=== PATIENT | female | born 1965 | race Caucasian/White ===

== ENCOUNTER 2018-09-18 08:45 | Outpatient (CLI) | payer OTHER ==
--- NOTE | 2018-09-18 09:37 | ULT ---
SONOGRAM LEFT BREAST: History: Palpable abnormality. Breast cancer with prior mastectomy and implant placement. FINDINGS: Sonographic evaluation of the lateral aspect of the left breast shows subcutaneous tissue and underly ing implant. No evidence of rupture. No solid or cystic masses. IMPRESSION: No masses are visible within the subcutaneous tissues at the lateral aspect of the left breast in reg ion of palpable concern. Underlying implant is visualized without sonographic evidence of complicatio n. BIRADS category 2 - benign findings. If there is ongoing concern, MRI breasts could be considered to evaluate the tissues and integrity of the implants. POS: CARLIE
== END 2018-09-18 08:46 | disposition home or self-care (01) ==
LOC: BICULT 08:45
PROVIDERS: ATTEND Plastic Surgery
DX: N63.20 Unspecified lump in the left breast, unspecified quadrant (principal)

== ENCOUNTER 2019-08-25 13:53 | Outpatient (CLI) | payer OTHER ==
--- NOTE | 2019-08-25 15:59 | MRI ---
MRI OF THE RIGHT KNEE: 08/25/19 PROVIDED CLINICAL HISTORY: Right knee pain. FINDINGS: The anterior cruciate ligament, posterior cruciate ligament, medial collateral ligament and lateral c ollateral ligamentous demonstrate an intact MR appearance, as does the extensor mechanism. The medial and lateral menisci demonstrate no evidence for tear. There is multifocal articular cartilage fissuring involving the median ridge and lateral facet of the patella with articular cartilage thinning involving the medial patellar facet. The majority of the cartilage fissuring described involves greater than 50% of cartilage thickness and several involving the full thickness of the articular cartilage. Articular cartilage appears otherwise preserved. There is increased signal intensity on fluid sensitive sequences involving the suprapatellar fat. N o focal concerning regional marrow or muscular signal abnormality is evident. The amount of fluid wi thin the knee joint appears physiologic. IMPRESSION: Prominent patellar chondrosis. Edema within the suprapatellar fat, which can be seen in the setting o f impingement. POS: OFF
== END 2019-08-25 13:54 | disposition home or self-care (01) ==
LOC: BICMRI 13:53
PROVIDERS: ATTEND Orthopaedic Surgery
DX: M25.561 Pain in right knee (principal); M22.2X1 Patellofemoral disorders, right knee

== ENCOUNTER 2021-12-26 12:36 | Emergency (ER) | payer BC | END 2021-12-26 14:50 | disposition home or self-care (01) | LOC: ERS 12:36 | DX: S61.212A Laceration without foreign body of right middle finger without damage to nail, initial encounter (principal); W23.0XXA Caught, crushed, jammed, or pinched between moving objects, initial encounter | CPT/HCPCS: 12001 ==

== ENCOUNTER 2022-06-21 07:25 | Outpatient (CLI) | payer BC | END 2022-06-21 07:26 | disposition home or self-care (01) | LOC: NM 07:25 | PROVIDERS: ATTEND Internal Medicine Hematology & Oncology | DX: C50.911 Malignant neoplasm of unspecified site of right female breast (principal); M54.9 Dorsalgia, unspecified; M54.2 Cervicalgia | CPT/HCPCS: 78306; A9503 ==

== ENCOUNTER 2022-08-15 16:20 | Outpatient (CLI) | payer BC | END 2022-08-15 17:30 | disposition home or self-care (01) | LOC: CTENTCT 16:20 | PROVIDERS: ATTEND Specialist | DX: J34.89 Other specified disorders of nose and nasal sinuses (principal) | CPT/HCPCS: 70486 ==

== ENCOUNTER 2022-09-20 08:52 | Day surgery (SDC) | payer BC ==
[2022-09-18 14:04] VITALS: BMI 26.5
[2022-09-20] MEDS ORDERED: fentaNYL PF 100 MCG/2 ML SYRINGE ONE (13:36)
[2022-09-20] MEDS ORDERED: methylPREDNISolone Acetate 40 mg/ml Vial ONE (13:36)
[2022-09-20] MEDS ORDERED: Oxymetazoline HCl 0.05% (30 ML BOT) ONE ×3 (14:16→15:01)
[2022-09-20] MEDS ORDERED: Midazolam HCl 2 mg/2 ml Vial ONE (14:43)
[2022-09-20] MEDS ORDERED: Lidocaine 1% (PF) 30 ML VIAL ONE (15:01)
[2022-09-20] MEDS ORDERED: EPINEPHrine 1 MG/ML AMP ONE (15:01)
[2022-09-20] MEDS ORDERED: Bacitracin Zinc Ointment 30 gm TUBE ONE (15:01)
[2022-09-20] MEDS ORDERED: Propofol 1,000 MG/100 ML VIAL IV ONE (15:50)
[2022-09-20] MEDS ORDERED: NEOSTIGMINE 3 MG/3 ML SYR 3 MG/3 ML SYRINGE ONE (15:56)
[2022-09-20] MEDS ORDERED: Glycopyrrolate 0.2 MG/ML 5 ML SYRINGE ONE (15:56)
[2022-09-20] MEDS ORDERED: Rocuronium Bromide 10 MG/ML (10ML VIAL) ONE (15:56)
[2022-09-20] MEDS ORDERED: ePHEDrine 50 MG/ML VIAL ONE (15:56)
[2022-09-20] MEDS ORDERED: PROPOFOL 200 MG/20 ML VIAL ONE (15:56)
[2022-09-20] MEDS ORDERED: Ondansetron PF 4 MG/2 ML Vial ONE (15:56)
[2022-09-20] MEDS ORDERED: Dexamethasone 20 MG/5 ML VIAL ONE (15:56)
[2022-09-20] MEDS ORDERED: FENTANYL 50 MCG/ML 1 ML VIAL ONE ×2 (17:21→17:48)
[2022-09-20] MEDS ORDERED: hydrALAZINE 20 MG/ML VIAL ONE (17:32)
== END 2022-09-20 18:20 | disposition home or self-care (01) ==
LOC: SDC 08:52
PROVIDERS: ATTEND Specialist
PROC: 09SM0ZZ Reposition Nasal Septum, Open Approach (ICD-10-PCS; principal; 2022-09-20)
PROC: 099Q8ZZ Drainage of Right Maxillary Sinus, Via Natural or Artificial Opening Endoscopic (ICD-10-PCS; principal; 2022-09-20)
PROC: 09SL8ZZ Reposition Nasal Turbinate, Via Natural or Artificial Opening Endoscopic (ICD-10-PCS; principal; 2022-09-20)
PROC: 099R8ZZ Drainage of Left Maxillary Sinus, Via Natural or Artificial Opening Endoscopic (ICD-10-PCS; principal; 2022-09-20)
DX: J01.01 Acute recurrent maxillary sinusitis (principal); J34.2 Deviated nasal septum; J34.3 Hypertrophy of nasal turbinates; J34.89 Other specified disorders of nose and nasal sinuses; G89.29 Other chronic pain; G44.209 Tension-type headache, unspecified, not intractable; E78.00 Pure hypercholesterolemia, unspecified; E03.9 Hypothyroidism, unspecified; M81.0 Age-related osteoporosis without current pathological fracture; J30.1 Allergic rhinitis due to pollen; J30.81 Allergic rhinitis due to animal (cat) (dog) hair and dander; Z85.3 Personal history of malignant neoplasm of breast; Z79.82 Long term (current) use of aspirin; Z79.890 Hormone replacement therapy; Z79.899 Other long term (current) drug therapy; Z88.6 Allergy status to analgesic agent
CPT/HCPCS: J0171; J0360; J1030; J1100; J2001; J2250; J2405; J2704; J3010; J3490

== ENCOUNTER 2024-04-13 12:48 | Outpatient (CLI) | payer BC | END 2024-04-13 12:49 | disposition home or self-care (01) | LOC: SCSMRI 12:48 | PROVIDERS: ATTEND Clinical Nurse Specialist Medical-Surgical | DX: M54.17 Radiculopathy, lumbosacral region (principal); M51.36 Other intervertebral disc degeneration, lumbar region; M47.816 Spondylosis without myelopathy or radiculopathy, lumbar region | CPT/HCPCS: 72148 ==

== ENCOUNTER 2024-04-27 09:03 | Observation (INO) | payer BC ==
[2024-04-27] MEDS ORDERED: fentaNYL 50 mcg/mL 1 mL Vial ONE (11:02)
[2024-04-27] MEDS ORDERED: Midazolam HCl 2 mg/2 ml Vial ONE (11:02)
[2024-04-27] MEDS ORDERED: Lidocaine 1.5% w/Epi 1:200K 30 ML VIAL (Epid Use) ONE (12:00)
[2024-04-27] MEDS ORDERED: PROPOFOL 20 ML ONE ×2 (12:03→12:53)
[2024-04-27] MEDS ORDERED: SUGAMMADEX SODIUM 200 MG/2 ML VIAL ONE ×2 (12:03→13:08)
[2024-04-27] MEDS ORDERED: fentaNYL PF 100 MCG/2 ML SYRINGE ONE (12:03)
[2024-04-27] MEDS ORDERED: Vancomycin 1 GM/200 ML (FROZEN) BAG ONE (12:17)
[2024-04-27] MEDS ORDERED: Lidocaine 2% PF 5 ML VIAL ONE (12:40)
[2024-04-27] MEDS ORDERED: Esmolol 100 MG/10 ML VIAL ONE (12:42)
[2024-04-27] MEDS ORDERED: Naloxone HCl 0.4 mg/ml Vial IV PRN (12:45)
[2024-04-27] MEDS ORDERED: Bupivacaine 0.25% 10 ML VIAL EPIDURAL PRN (12:45)
[2024-04-27] MEDS ORDERED: Naloxone HCl 0.4 mg/ml Vial IVP PRN (12:45)
[2024-04-27] MEDS ORDERED: diphenhydrAMINE 50 MG/ML VIAL IM PRN (12:45)
[2024-04-27] MEDS ORDERED: Promethazine HCl 25 MG SUPP PR PRN (12:45)
[2024-04-27] MEDS ORDERED: Promethazine HCl 25 MG/ML VIAL IM PRN (12:45)
[2024-04-27] MEDS ORDERED: traMADol HCl 50 MG TAB PO PRN ×2 (12:45)
[2024-04-27] MEDS ORDERED: Ondansetron PF 4 MG/2 ML Vial IVP PRN (12:45)
[2024-04-27] MEDS ORDERED: Moisturizing Cream (Eucerin) 113 GM JAR TOP PRN (12:45)
[2024-04-27] MEDS ORDERED: Zolpidem Tartrate 5 MG TAB PO PRN (12:45)
[2024-04-27] MEDS ORDERED: Dexamethasone 20 MG/5 ML VIAL ONE (12:50)
[2024-04-27] MEDS ORDERED: Ondansetron PF 4 MG/2 ML Vial ONE (12:50)
[2024-04-27] MEDS ORDERED: Rocuronium Bromide 10 MG/ML (10ML VIAL) ONE (12:50)
[2024-04-27] MEDS ORDERED: Metoclopramide HCl 10 MG (2 mL) VIAL ONE (12:54)
[2024-04-27] MEDS ORDERED: HYDROmorphone 2 MG/ML VIAL ONE (13:34)
[2024-04-27 16:02] VITALS: BMI 23.0
[2024-04-27] MEDS: diphenhydrAMINE 50 MG/ML VIAL IVP PRN (16:15)
[2024-04-27] MEDS: Simvastatin 10 MG TAB PO SCH (21:49)
[2024-04-27] MEDS: Magnesium Oxide 250 MG TAB PO SCH (21:49)
[2024-04-27] MEDS: Pantoprazole DR 40 MG TAB PO SCH (21:50)
[2024-04-27] MEDS: HYDROcodone/Acetaminophen 5/325 mg Tablet PO PRN (21:50)
[2024-04-27] MEDS: Montelukast Sodium 10 mg Tablet PO SCH (21:50)
[2024-04-27] MEDS: diphenhydrAMINE 25 MG CAP PO PRN (21:51)
[2024-04-28] MEDS: Vancomycin 1 GM in Premix 1 BAG IVPB SCH (00:50)
[2024-04-28] MEDS: Acyclovir 400 mg Tablet PO SCH (00:51)
[2024-04-28] MEDS: FENTANYL 500 MCG/10 ML VIAL 500 MCG, Bupivacaine 0.75% 10 ML in Sodium Chloride 0.9% 80 ML EPIDURAL SCH (04:26)
[2024-04-28] MEDS: Levothyroxine Sodium 75 MCG TAB PO SCH (06:23)
[2024-04-28] MEDS: HYDROcodone/Acetaminophen 5/325 mg Tablet PO PRN (09:59)
[2024-04-28] MEDS: Calcium Carbonate 600 MG + Vit D TAB PO SCH (10:00)
[2024-04-28] MEDS: Famotidine 20 MG TAB PO SCH (10:01)
[2024-04-28] MEDS: Lisinopril 5 MG TAB PO SCH (10:01)
[2024-04-28] MEDS: Cholecalciferol 1,000 UNITS (25 MCG) TAB PO SCH (10:01)
[2024-04-28] MEDS: Gabapentin 300 MG CAP PO SCH (10:01)
[2024-04-28 12:39] VITALS: BP 178/87; TEMP 98
== END 2024-04-28 14:30 | disposition home or self-care (01) ==
LOC: SDC 09:03 → SURG B 15:29
PROVIDERS: ADMIT Orthopaedic Surgery; ATTEND Orthopaedic Surgery
PROC: 0SSCXZZ Reposition Right Knee Joint, External Approach (ICD-10-PCS; principal; 2024-04-28)
PROC: 3E0T3BZ Introduction of Anesthetic Agent into Peripheral Nerves and Plexi, Percutaneous Approach (ICD-10-PCS; 2024-04-28)
DX: M25.661 Stiffness of right knee, not elsewhere classified (principal); M85.80 Other specified disorders of bone density and structure, unspecified site; E03.9 Hypothyroidism, unspecified; D72.819 Decreased white blood cell count, unspecified; E78.00 Pure hypercholesterolemia, unspecified; E55.9 Vitamin D deficiency, unspecified; Z90.13 Acquired absence of bilateral breasts and nipples; Z96.651 Presence of right artificial knee joint; Z90.710 Acquired absence of both cervix and uterus; Z98.890 Other specified postprocedural states; Z79.899 Other long term (current) drug therapy; Z88.6 Allergy status to analgesic agent
CPT/HCPCS: J1100; J1170; J1200; J2001; J2250; J2405; J2704; J2765; J3010; J3370-JW; J3490

== ENCOUNTER 2024-08-10 13:23 | Outpatient (CLI) | payer BC | END 2024-08-10 13:24 | disposition home or self-care (01) | LOC: BICULT 13:23 | PROVIDERS: ATTEND Family Medicine | DX: H93.8X1 Other specified disorders of right ear (principal) | CPT/HCPCS: 93880 ==

== ENCOUNTER 2024-09-17 08:59 | Outpatient (CLI) | payer BC | END 2024-09-17 09:00 | disposition home or self-care (01) | LOC: BICCT 08:59 | PROVIDERS: ATTEND Family Medicine | DX: R26.89 Other abnormalities of gait and mobility (principal) | CPT/HCPCS: 70470; 82565 ==

== ENCOUNTER 2025-06-11 06:54 | Day surgery (SDC) | payer BC ==
[2025-06-08 08:19] VITALS: BMI 23.1
[2025-06-11] MEDS ORDERED: PROPOFOL 20 ML ONE (08:23)
[2025-06-11] MEDS ORDERED: Lidocaine 1% PF 5 ML VIAL ONE (08:24)
[2025-06-11] MEDS ORDERED: CEFAZOLIN 2 GM VIAL ONE (08:55)
[2025-06-11] MEDS ORDERED: Ondansetron PF 4 MG/2 ML Vial ONE (09:13)
[2025-06-11] MEDS ORDERED: Bupivacaine 0.25% HCL 30 ML VIAL ONE (10:02)
[2025-06-11] MEDS ORDERED: HYDROcodone/Acetaminophen 5/325 mg Tablet ONE (11:08)
== END 2025-06-11 11:35 | disposition home or self-care (01) ==
LOC: SDC 06:54
PROVIDERS: ATTEND Orthopaedic Surgery
PROC: 3E0T3BZ Introduction of Anesthetic Agent into Peripheral Nerves and Plexi, Percutaneous Approach (ICD-10-PCS; principal; 2025-06-11)
PROC: 0SNC4ZZ Release Right Knee Joint, Percutaneous Endoscopic Approach (ICD-10-PCS; principal; 2025-06-11)
DX: M25.561 Pain in right knee (principal); M25.461 Effusion, right knee; E78.00 Pure hypercholesterolemia, unspecified; E03.9 Hypothyroidism, unspecified; Z96.651 Presence of right artificial knee joint; Z96.659 Presence of unspecified artificial knee joint; Z90.710 Acquired absence of both cervix and uterus; Z90.13 Acquired absence of bilateral breasts and nipples; Z88.6 Allergy status to analgesic agent; Z79.899 Other long term (current) drug therapy
CPT/HCPCS: J0169; J0665; J1100; J2405; J2704; J3010